=== PATIENT | female | born 1985 | race Caucasian/White ===

== ENCOUNTER 2020-12-04 19:55 | Inpatient (IN) | payer BC ==
[2020-12-04] MEDS: Lactated Ringers 1,000 ML IV SCH ×3 (21:10→23:09)
[2020-12-04] MEDS ORDERED: Acetaminophen 325 MG Tab PO PRN (21:16)
[2020-12-04] MEDS ORDERED: Ondansetron 4 MG/2 ML SDV IVPUSH PRN (21:16)
[2020-12-04] MEDS ORDERED: Calcium Carbonate 500 MG Tab.Chew PO PRN (21:16)
[2020-12-04] MEDS ORDERED: Nalbuphine 10 MG/1 ML Vial IVPUSH PRN (21:16)
[2020-12-04] MEDS ORDERED: Lidocaine 1% 50 ML MDV INJECT ONE (21:16)
[2020-12-04] MEDS ORDERED: Sodium Chloride 0.9% 10 ML Syringe FLUSH PRN (21:16)
[2020-12-04] MEDS ORDERED: Oxytocin/Lactated Ringers 10 UNIT/1,000 ML BAG IV SCH (21:30)
[2020-12-04] MEDS ORDERED: Bupivacaine/fentaNYL/NS 100 ML Bag EPIDUR PRN (22:28)
[2020-12-04] MEDS ORDERED: ePHEDrine 50 MG/ML SDV IVPUSH PRN (22:28)
[2020-12-04] MEDS ORDERED: diphenhydrAMINE 50 MG/ML SDV IVPUSH PRN (22:28)
[2020-12-04] MEDS ORDERED: fentaNYL 100 MCG/2 ML SDV EPIDUR PRN (22:28)
--- NOTE | 2020-12-04 23:03 | PCM.PREANE ---
Preanesthetic Assessment - Procedure Proposed Procedure: epidural - Anesthesia/Transfusion/Family Hx Anesthesia History: Prior Anesthesia Without Reaction Family History of Anesthesia Reaction: No Transfusion History: No Prior Transfusion(s) - Review of Systems General: Fatigue, Malaise Pulmonary: No Symptoms Cardiovascular: No Symptoms Gastrointestinal: Abdominal Pain (labor) Neurological: No Symptoms Other: Reports: None - Physical Assessment Height: 1.68 m Weight: 98.43 kg ASA Class: 2 Mental Status: Alert & Oriented x3 Airway Class: Mallampati = 1 Dentition: Reports: Normal Dentition Thyro-Mental Finger Breadths: 3 Mouth Opening Finger Breadths: 3 ROM/Head Extension: Full Lungs: Clear to Auscultation, Normal Respiratory Effort Cardiovascular: Regular Rate, Regular Rhythm - Lab Values: Laboratory Last Values WBC 10.08 K/mm3 (3.98-10.04) H 12/04/20 21:35 RBC 3.99 M/mm3 (3.98-5.22) 12/04/20 21:35 Hgb 12.5 gm/dl (11.2-15.7) 12/04/20 21:35 Hct 37.1 % (34.1-44.9) 12/04/20 21:35 MCV 93.0 fl (79.4-94.8) 12/04/20 21:35 MCH 31.3 pg (25.6-32.2) 12/04/20 21:35 MCHC 33.7 g/dl (32.2-35.5) 12/04/20 21:35 RDW Std Deviation 43.0 fL (36.4-46.3) 12/04/20 21:35 Plt Count 203 K/mm3 (182-369) 12/04/20 21:35 MPV 10.3 fl (9.4-12.3) 12/04/20 21:35 Neut % (Auto) 75.1 % (34.0-71.1) H 12/04/20 21:35 Lymph % (Auto) 15.6 % (19.3-51.7) L 12/04/20 21:35 [place] % (Auto) 7.8 % (4.7-12.5) 12/04/20 21:35 Eos % (Auto) 1.0 (0.7-5.8) 12/04/20 21:35 Baso % (Auto) 0.1 % (0.1-1.2) 12/04/20 21:35 Neut # (Auto) 7.57 K/mm3 (1.56-6.13) H 12/04/20 21:35 Lymph # (Auto) 1.57 K/mm3 (1.18-3.74) 12/04/20 21:35 [place] # (Auto) 0.79 K/mm3 (0.24-0.36) H 12/04/20 21:35 Eos # (Auto) 0.10 K/mm3 (0.04-0.36) 12/04/20 21:35 Baso # (Auto) 0.01 K/mm3 (0.01-0.08) 12/04/20 21:35 Manual Slide Review 12/04/20 21:35 - Allergies Allergies/Adverse Reactions: Allergies Allergy/AdvReac Type Severity Reaction Status Date / Time No Known Allergies Allergy Verified 12/04/20 22:05 - Anesthesia Plan Pre-Op Medication Ordered: None - Acknowledgements Anesthesia Type Planned: Epidural Pt an Appropriate Candidate for the Planned Anesthesia: Yes Alternatives and Risks of Anesthesia Discussed w Pt/Guardian: Yes Pt/Guardian Understands and Agrees with Anesthesia Plan: Yes PreAnesthesia Questionnaire HEENT History: Reports: None Cardiovascular History: Reports: None Respiratory History: Reports: Asthma, Other (See Below) Other Respiratory History: when exposed to cats and smoke and too much exercise needs inhaler-has not needed it during Gastrointestinal History: Reports: None, GERD Genitourinary History: Reports: None RIBBER History: Reports: Spontaneous Musculoskeletal History: Reports: None Neurological History: Reports: None Psychiatric History: Reports: None Endocrine/Metabolic History: Reports: None Hematologic History: Reports: None Immunologic History: Reports: None Oncologic (Cancer) History: Reports: None Dermatologic History: Reports: None - Infectious Disease History Infectious Disease History: Reports: None - Past Surgical History Head Surgeries/Procedures: Reports: None HEENT Surgical History: Reports: Adenoidectomy, Tonsillectomy Other HEENT Surgeries/Procedures: age 12 Cardiovascular Surgical History: Reports: None Respiratory Surgical History: Reports: None GI Surgical History: Reports: None Female Surgical History: Reports: None Endocrine Surgical History: Reports: None Neurological Surgical History: Reports: None Musculoskeletal Surgical History: Reports: None Oncologic Surgical History: Reports: None Dermatological Surgical History: Reports: None - CURRENT (IN HOUSE) MEDS Current Meds: Current Medications Acetaminophen (Acetaminophen 325 Mg Tab) 650 mg PO Q4H PRN PRN Reason: Pain (Mild 1-3) and fever Calcium Carbonate/Glycine (Calcium Carbonate 500 Mg Tab.Chew) 1,000 mg PO Q2H PRN PRN Reason: Indigestion Diphenhydramine HCl (Diphenhydramine 50 Mg/Ml Sdv) 25 mg IVPUSH Q6H PRN PRN Reason: pruritis Ephedrine Sulfate (Ephedrine 50 Mg/Ml Sdv) 5 mg IVPUSH ASDIRECTED PRN PRN Reason: Hypotension Fentanyl (Fentanyl 100 Mcg/2 Ml Sdv) 100 mcg EPIDUR Q3H PRN PRN Reason: Pain Last Admin: 12/04/20 22:38 Dose: 100 mcg Documented by: Fentanyl/Bupivacaine HCl (Bupivacaine/Fentanyl/Ns 100 Ml Bag) 100 ml EPIDUR ASDIRECTED PRN PRN Reason: Pain Last Admin: 12/04/20 22:38 Dose: 100 ml Documented by: Lactated Ringer's (Ringers, Lactated) 1,000 mls @ 100 mls/hr IV ASDIRECTED TORRIE Last Admin: 12/04/20 22:15 Dose: 999 mls/hr Documented by: Oxytocin/Lactated Ringer's (Pitocin In Lr 10 Units/1,000 Ml) 10 unit in 1,000 mls @ 500 mls/hr IV .CONTINUOUS TORRIE Nalbuphine HCl (Nalbuphine 10 Mg/1 Ml Vial) 10 mg IVPUSH Q2H PRN PRN Reason: Pain Ondansetron HCl (Ondansetron 4 Mg/2 Ml Sdv) 4 mg IVPUSH Q4H PRN PRN Reason: Nausea/Vomiting Sodium Chloride (Sodium Chloride 0.9% 10 Ml Syringe) 10 ml FLUSH ASDIRECTED PRN PRN Reason: Keep Vein Open Discontinued Medications Lidocaine HCl (Lidocaine 1% 50 Ml Mdv) 50 ml INJECT ONETIME ONE Stop: 12/04/20 21:17
[2020-12-05] MEDS: Lactated Ringers 1,000 ML IV SCH (00:10)
--- NOTE | 2020-12-05 02:07 | PCM.LDHP ---
L&D History of Present Illness - General Date of Service: 12/05/20 Admit Problem/Dx: Patient Status Order with Admit Dx/Problem 12/04/20 20:06 Patient Status [ADT] Routine 12/04/20 21:16 Patient Status [ADT] Routine 12/04/20 21:31 Admission Status [Patient Status] [ADT] Routine Admission Diagnosis/Problem Admission Diagnosis/Problem - History of Present Illness Introduction:: 35 year old at 40w1 here in labor. PNC with Dr. Nova without com plications. 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 Musculoskeletal History: Reports: None Neurological History: Reports: None Psychiatric History: Reports: None Endocrine/Metabolic History: Reports: None Hematologic History: Reports: None Immunologic History: Reports: None Oncologic (Cancer) History: Reports: None Dermatologic History: Reports: None - Infectious Disease History Infectious Disease History: Reports: None - Past Surgical History Head Surgeries/Procedures: Reports: None HEENT Surgical History: Reports: Adenoidectomy, Tonsillectomy Other HEENT Surgeries/Procedures: age 12 Cardiovascular Surgical History: Reports: None Respiratory Surgical History: Reports: None GI Surgical History: Reports: None Female Surgical History: Reports: None Endocrine Surgical History: Reports: None Neurological Surgical History: Reports: None Musculoskeletal Surgical History: Reports: None Oncologic Surgical History: Reports: None Dermatological Surgical History: Reports: None Social & Family History - Family History Family Medical History: No Pertinent Family History - Tobacco Use Tobacco Use Status *Q: Never Tobacco User Second Hand Smoke Exposure: No - Caffeine Use Caffeine Use: Reports: Coffee - Recreational Drug Use Recreational Drug Use: No H&P Review of Systems - Review of Systems: Review Of Systems: See Below General: Reports: No Symptoms HEENT: Reports: No Symptoms Pulmonary: Reports: No Symptoms Cardiovascular: Reports: No Symptoms Gastrointestinal: Reports: No Symptoms Genitourinary: Reports: No Symptoms Musculoskeletal: Reports: No Symptoms Skin: Reports: No Symptoms Psychiatric: Reports: No Symptoms Neurological: Reports: No Symptoms Hematologic/Lymphatic: Reports: No Symptoms Immunologic: Reports: No Symptoms L&D Exam - Exam Exam: See Below - Vital Signs Weight: 98.43 kg - OB Specific Contraction Intensity: Moderate to Strong Movement: Active Heart Tones: Present Heart Rate (FHR) Variability: Moderate (6-25 bmp) Presentation: Vertex - Terrazas Score Terrazas Score Cervix Position: Anterior [place]raz[place] Score Consistency: Soft [place] Score Effacement: 51-70% - Exam General: Alert, Oriented HEENT: PERRLA, Conjunctiva Clear, EACs Clear, EOMI, Hearing Intact, Mucosa Moist & [place], Nares Patent, Normal Nasal Septum, Posterior Pharynx Clear, TMs Clear Neck: Supple, Trachea Midline Lungs: Clear to Auscultation, Normal Respiratory Effort Cardiovascular: Regular Rate, Regular Rhythm GI/Abdominal Exam: Normal Bowel Sounds, Soft, Non-Tender, No Organomegaly, No Distention, No Abnormal Bruit, No Mass Genitourinary: Normal external exam, Normal bimanual exam Back Exam: Normal Inspection, Full Range of Motion Extremities: Normal Inspection, Normal Range of Motion, Non-Tender, No Pedal Edema, Normal Capillary Refill Skin: Warm, Dry, Intact Neurological: Cranial Nerves Intact, Reflexes Equal Bilateral Psychiatric: Alert, Normal Affect, Normal Mood - Patient Data Lab Results Last 24 hrs: Laboratory Results - last 24 hr 12/04/20 12/04/20 Range/Units 21:35 22:10 WBC 10.08 H (3.98-10.04) K/mm3 RBC 3.99 (3.98-5.22) M/mm3 Hgb 12.5 (11.2-15.7) gm/dl Hct 37.1 (34.1-44.9) % MCV 93.0 (79.4-94.8) fl MCH 31.3 (25.6-32.2) pg MCHC 33.7 (32.2-35.5) g/dl RDW Std Deviation 43.0 (36.4-46.3) fL Plt Count 203 (182-369) K/mm3 MPV 10.3 (9.4-12.3) fl Neut % (Auto) 75.1 H (34.0-71.1) % Lymph % (Auto) 15.6 L (19.3-51.7) % [place] % (Auto) 7.8 (4.7-12.5) % Eos % (Auto) 1.0 (0.7-5.8) Baso % (Auto) 0.1 (0.1-1.2) % Neut # (Auto) 7.57 H (1.56-6.13) K/mm3 Lymph # (Auto) 1.57 (1.18-3.74) K/mm3 [place] # (Auto) 0.79 H (0.24-0.36) K/mm3 Eos # (Auto) 0.10 (0.04-0.36) K/mm3 Baso # (Auto) 0.01 (0.01-0.08) K/mm3 Manual Slide Review SARS-CoV-2 RNA (KRISTEN) Negative (NEGATIVE) Result Diagrams: 12/04/20 21:35 Problem List Initiated/Reviewed/Updated: Yes Orders Last 24hrs: Active Orders 24 hr Category Date Time Status Admission Status [Patient Status] [ADT] Routine ADT 12/04/20 21:31 Active Activity as Tolerated [RC] PFP Care 12/04/20 21:16 Active Communication Order [RC] ASDIRECTED Care 12/04/20 21:16 Active Communication Order [RC] ASDIRECTED Care 12/04/20 22:29 Active Cooling Warming Measures [RC] ASDIRECTED Care 12/04/20 22:29 Active Heart Tones [RC] ASDIRECTED Care 12/04/20 21:17 Active Non Stress Test [RC] PER UNIT ROUTINE Care 12/04/20 20:06 Active Non Stress Test [RC] PER UNIT ROUTINE Care 12/04/20 21:16 Active Notify Provider [RC] ASDIRECTED Care 12/04/20 22:28 Active Notify Provider [RC] ASDIRECTED Care 12/04/20 22:29 Active Notify Provider [RC] PFP Care 12/04/20 21:16 Active Notify Provider [RC] PRN Care 12/04/20 21:16 Active Oxygen Therapy [RC] ASDIRECTED Care 12/04/20 22:29 Active Peripheral IV Care [RC] . DIRECTED Care 12/04/20 21:17 Active Pulse Oximetry [RC] ASDIRECTED Care 12/04/20 22:29 Active Vital Signs [RC] PER UNIT ROUTINE Care 12/04/20 20:06 Active Vital Signs [RC] Q1H Care 12/04/20 22:29 Active HEP C VIRUS AB [REF] Routine Lab 12/04/20 21:35 Received RAPID PLASMA REAGIN,RPR [CHEM] Routine Lab 12/04/20 21:35 Received Acetaminophen [TylenoL] Med 12/04/20 21:16 Active 650 mg PO Q4H PRN Bupivacaine/fentaNYL/NS [fentaNYL/Bupivacaine/NS 2 MCG- Med 12/04/20 22:28 Active 0.125% 100 ML] 100 ml EPIDUR ASDIRECTED PRN Calcium Carbonate [Tums] Med 12/04/20 21:16 Active 1,000 mg PO Q2H PRN Lactated Ringers [Ringers, Lactated] 1,000 ml Med 12/04/20 21:30 Active IV ASDIRECTED Nalbuphine [Nubain] Med 12/04/20 21:16 Active 10 mg IVPUSH Q2H PRN Ondansetron [Zofran] Med 12/04/20 21:16 Active 4 mg IVPUSH Q4H PRN Oxytocin/Lactated Ringers [Pitocin in LR 10 Units/1,000 Med 12/04/20 21:30 Active ML] 10 unit in 1,000 ml IV .CONTINUOUS Sodium Chloride 0.9% [Saline Flush] Med 12/04/20 21:16 Active 10 ml FLUSH ASDIRECTED PRN diphenhydrAMINE [Benadryl] Med 12/04/20 22:28 Active 25 mg IVPUSH Q6H PRN ePHEDrine [ePHEDrine sulfate] Med 12/04/20 22:28 Active 5 mg IVPUSH ASDIRECTED PRN fentaNYL [Sublimaze] Med 12/04/20 22:28 Active 100 mcg EPIDUR Q3H PRN Electronic Heart Tones Ext w TOCO [WOMSER] Oth 12/04/20 21:16 Ordered Routine Electronic Heart Tones Internal [WOMSER] Per Unit Oth 12/04/20 21:16 Ordered Routine Peripheral IV Insertion Adult [OM.PC] Routine Oth 12/04/20 21:16 Ordered Resuscitation Status Routine Resus Stat 12/04/20 20:06 Ordered Medication Orders Acetaminophen (Acetaminophen 325 Mg Tab) 650 mg PO Q4H PRN PRN Reason: Pain (Mild 1-3) and fever Calcium Carbonate/Glycine (Calcium Carbonate 500 Mg Tab.Chew) 1,000 mg PO Q2H PRN PRN Reason: Indigestion Diphenhydramine HCl (Diphenhydramine 50 Mg/Ml Sdv) 25 mg IVPUSH Q6H PRN PRN Reason: pruritis Ephedrine Sulfate (Ephedrine 50 Mg/Ml Sdv) 5 mg IVPUSH ASDIRECTED PRN PRN Reason: Hypotension Fentanyl (Fentanyl 100 Mcg/2 Ml Sdv) 100 mcg EPIDUR Q3H PRN PRN Reason: Pain Last Admin: 12/04/20 22:38 Dose: 100 mcg Documented by: PAOLA Fentanyl/Bupivacaine HCl (Bupivacaine/Fentanyl/Ns 100 Ml Bag) 100 ml EPIDUR ASDIRECTED PRN PRN Reason: Pain Last Admin: 12/04/20 22:38 Dose: 100 ml Documented by: PAOLA Lactated Ringer's (Ringers, Lactated) 1,000 mls @ 100 mls/hr IV ASDIRECTED TORRIE Last Admin: 12/04/20 23:09 Dose: 999 mls/hr Documented by: Infusion: 12/04/20 23:09 Dose: 999 mls/hr Documented by: Admin: 12/04/20 22:15 Dose: 999 mls/hr Documented by: Infusion: 12/04/20 22:11 Dose: 999 mls/hr Documented by: Admin: 12/04/20 21:10 Dose: 999 mls/hr Documented by: ALMITA Oxytocin/Lactated Ringer's (Pitocin In Lr 10 Units/1,000 Ml) 10 unit in 1,000 mls @ 500 mls/hr IV .CONTINUOUS TORRIE Nalbuphine HCl (Nalbuphine 10 Mg/1 Ml Vial) 10 mg IVPUSH Q2H PRN PRN Reason: Pain Ondansetron HCl (Ondansetron 4 Mg/2 Ml Sdv) 4 mg IVPUSH Q4H PRN PRN Reason: Nausea/Vomiting Sodium Chloride (Sodium Chloride 0.9% 10 Ml Syringe) 10 ml FLUSH ASDIRECTED PRN PRN Reason: Keep Vein Open Assessment/Plan Comment:: Term labor. Anticipate
--- NOTE | 2020-12-05 03:45 | PCM.SN.2 ---
- Free Text/Narrative Note: Stage I - Patient presented in active labor at 40w1. Painful contractions. Progressed to complete with overall reassuring heart tones with some episodes of diminished variability that resolved promptly either spontaneously or with scalp stimulation. SROM of minimal fluid at 8 cm and soon there after complete. Stage II - of viable female, weight 3280g, 2/6/9 apgars at 0309. Head delivered OP with nuchal hand in controlled manner. Body followed atraumatically. Meconium at delivery. Limp baby briefly to maternal abdomen, cord clamped and cut and taken immediately to warmer to awaiting nurses. Cord blood collected. Stage III - of intact placenta. 3vc. Left labial and 2nd degree midline lacerations repaired with 3-0 vicryl. EBL 250. Straight cath of clear urine.
[2020-12-05] MEDS ORDERED: Bupivacaine 0.25% 10 ML SDV ONE (04:00)
[2020-12-05] MEDS ORDERED: Witch Hazel Medicated Pads 40/Jar TOP PRN (04:49)
[2020-12-05] MEDS ORDERED: Docusate Sodium 100 MG Cap PO PRN (04:49)
[2020-12-05] MEDS ORDERED: Benzocaine/Menthol 20%-0.5% Spray 56 GM Canister TOP PRN (04:49)
[2020-12-05] MEDS: Ibuprofen 600 MG Tab PO PRN ×2 (05:06→16:46)
--- NOTE | 2020-12-05 07:13 | PCM48HPAN ---
Post Anesthesia Note - EVALUATION WITHIN 48HRS OF ANESTHETIC Vital Signs in Normal Range: Yes Patient Participated in Evaluation: Yes Respiratory Function Stable: Yes Airway Patent: Yes Cardiovascular Function Stable: Yes Hydration Status Stable: Yes Pain Control Satisfactory: Yes Nausea and Vomiting Control Satisfactory: Yes Mental Status Recovered: Yes - COMMENTS/OBSERVATIONS Free Text/Narrative:: Patient sitting up in bed nursing baby during visit. Patient denying nausea/v omiting. Patient having mild back discomfort at this time at epidural placement site. Reviewed signs and symptoms of infection, mild back discomfort, and post- dural puncture headache (headache, ringing in ears, dizziness). Also discussed post- depression and signs/symptoms. Discussed with patient if any of those symptoms develop or if back discomfort increases to contact OB/Anesthesia and questions/concerns can be addressed and treated if necessary. Patient verbalized understanding. No questions or concerns at this time.
[2020-12-06] MEDS: Ibuprofen 600 MG Tab PO PRN (07:37)
--- NOTE | 2020-12-06 08:53 | PCM.DCSUM1 ---
Discharge Summary - Hospital Course Brief History: 35 year old s/p . Doing well. No issues. Diagnosis: Stroke: No - Discharge Data Discharge Date: 12/06/20 Discharge Disposition: Home, Self-Care 01 Condition: Good - Referral to Home Health Primary Care Physician: Tessa Nova MD - Patient Instructions Diet: Usual Diet as Tolerated Activity: No Strenuous Activities Driving: May Drive Today Showering/Bathing: May Shower Wound/Incision Care: Keep Operative Site/Wound Site Clean and Dry, Change Dressing Daily, Do NOT Change Dressing Notify Provider of: Fever, Increased Pain, Swelling and Redness, Drainage, Nausea and/or Vomiting - Discharge Plan *PRESCRIPTION DRUG MONITORING PROGRAM REVIEWED*: No *COPY OF PRESCRIPTION DRUG MONITORING REPORT IN PATIENT TASHA: No Referrals: Tessa Nova MD [Primary Care Provider] - (2 weeks) - Discharge Summary/Plan Comment DC Time >30 min.: No - General Info Date of Service: 12/06/20 Functional Status: Reports: Pain Controlled - Review of Systems General: Reports: No Symptoms HEENT: Reports: No Symptoms Pulmonary: Reports: No Symptoms Cardiovascular: Reports: No Symptoms Gastrointestinal: Reports: No Symptoms Genitourinary: Reports: No Symptoms Musculoskeletal: Reports: No Symptoms Skin: Reports: No Symptoms Neurological: Reports: No Symptoms Psychiatric: Reports: No Symptoms - Patient Data Vitals - Most Recent: Last Vital Signs Temp 36.7 C 12/06/20 04:47 Pulse 72 12/06/20 04:47 Resp 16 12/06/20 04:47 BP 122/70 12/06/20 04:47 Pulse Ox 92 L 12/06/20 04:47 Weight - Most Recent: 98.43 kg Lab Results - Last 24 hrs: Laboratory Results - last 24 hr 12/04/20 Range/Units 21:35 RPR Non-reactive (NONREACTIVE) Med Orders - Current: Current Medications Acetaminophen (Acetaminophen 325 Mg Tab) 650 mg PO Q4H PRN PRN Reason: Pain (Mild 1-3) and fever Benzocaine/Menthol (Benzocaine/Menthol 20%-0.5% [place] 56 Gm Canister) 0 gm TOP ASDIRECTED PRN PRN Reason: Perineal Comfort Measure Last Admin: 12/05/20 05:05 Dose: 1 canister Documented by: Docusate Sodium (Docusate Sodium 100 Mg Cap) 100 mg PO BID PRN PRN Reason: Constipation Ibuprofen (Ibuprofen 600 Mg Tab) 600 mg PO Q6H PRN PRN Reason: Mild pain or fever Last Admin: 12/06/20 07:37 Dose: 600 mg Documented by: Peter Montanez (Peter Montanez Medicated Pads 40/Jar) 1 pad TOP ASDIRECTED PRN PRN Reason: Perineal Comfort Measure Last Admin: 12/05/20 05:06 Dose: 1 case Documented by: Discontinued Medications Bupivacaine HCl (Bupivacaine 0.25% 10 Ml Sdv) 10 ml .ROUTE .STK-MED ONE Stop: 12/05/20 04:01 Calcium Carbonate/Glycine (Calcium Carbonate 500 Mg Tab.Chew) 1,000 mg PO Q2H PRN PRN Reason: Indigestion Diphenhydramine HCl (Diphenhydramine 50 Mg/Ml Sdv) 25 mg IVPUSH Q6H PRN PRN Reason: pruritis Ephedrine Sulfate (Ephedrine 50 Mg/Ml Sdv) 5 mg IVPUSH ASDIRECTED PRN PRN Reason: Hypotension Fentanyl (Fentanyl 100 Mcg/2 Ml Sdv) 100 mcg EPIDUR Q3H PRN PRN Reason: Pain Last Admin: 12/04/20 22:38 Dose: 100 mcg Documented by: Fentanyl/Bupivacaine HCl (Bupivacaine/Fentanyl/Ns 100 Ml Bag) 100 ml EPIDUR ASDIRECTED PRN PRN Reason: Pain Last Admin: 12/04/20 22:38 Dose: 100 ml Documented by: Lactated Ringer's (Ringers, Lactated) 1,000 mls @ 100 mls/hr IV ASDIRECTED TORRIE Last Infusion: 12/05/20 02:15 Dose: 500 mls/hr Documented by: Oxytocin/Lactated Ringer's (Pitocin In Lr 10 Units/1,000 Ml) 10 unit in 1,000 mls @ 500 mls/hr IV .CONTINUOUS TORRIE Last Admin: 12/05/20 03:10 Dose: 500 mls/hr Documented by: Lidocaine HCl (Lidocaine 1% 50 Ml Mdv) 50 ml INJECT ONETIME ONE Stop: 12/04/20 21:17 Nalbuphine HCl (Nalbuphine 10 Mg/1 Ml Vial) 10 mg IVPUSH Q2H PRN PRN Reason: Pain Ondansetron HCl (Ondansetron 4 Mg/2 Ml Sdv) 4 mg IVPUSH Q4H PRN PRN Reason: Nausea/Vomiting Sodium Chloride (Sodium Chloride 0.9% 10 Ml Syringe) 10 ml FLUSH ASDIRECTED PRN PRN Reason: Keep Vein Open - Exam General: Reports: Alert, Oriented HEENT: Reports: Pupils Equal, Pupils Reactive, EOMI, Mucous Membr. Moist/[place] Neck: Reports: Supple Lungs: Reports: Clear to Auscultation, Normal Respiratory Effort Cardiovascular: Reports: Regular Rate, Regular Rhythm GI/Abdominal Exam: Normal Bowel Sounds, Soft, Non-Tender, No Organomegaly, No Distention, No Abnormal Bruit (Female) Exam: Normal Speculum Exam Rectal (Female) Exam: Normal Exam, Normal Rectal Tone Back Exam: Reports: Normal Inspection, Full Range of Motion Extremities: Normal Inspection, Normal Range of Motion, Non-Tender, No Pedal Edema, Normal Capillary Refill Skin: Reports: Warm, Dry, Intact Wound/Incisions: Reports: Healing Well Neurological: Reports: No New Focal Deficit Psy/Mental Status: Reports: Alert, Normal Affect, Normal Mood
== END 2020-12-06 09:18 | disposition home or self-care (01) | DRG 560 ==
LOC: JD.OBCHECK 19:55 → JD.OB 19:56 → JD.OBCHECK 21:15 → JD.OB 21:16 → OBSVTOIN 12-05 03:09 → JD.OB 12-05 03:10
PROVIDERS: ADMIT Obstetrics & Gynecology; ATTEND Obstetrics & Gynecology
PROC: 10E0XZZ Delivery of Products of Conception, External Approach (ICD-10-PCS; principal; 2020-12-05)
PROC: 0KQM0ZZ Repair Perineum Muscle, Open Approach (ICD-10-PCS; 2020-12-05)
PROC: 3E0R3BZ Introduction of Anesthetic Agent into Spinal Canal, Percutaneous Approach (ICD-10-PCS; 2020-12-05)
DX: O48.0 Post-term pregnancy (principal); Z37.0 Single live birth; O77.0 Labor and delivery complicated by meconium in amniotic fluid; O69.81X0 Labor and delivery complicated by cord around neck, without compression, not applicable or unspecified; O70.1 Second degree perineal laceration during delivery; Z3A.40 40 weeks gestation of pregnancy; Z90.89 Acquired absence of other organs; Z90.49 Acquired absence of other specified parts of digestive tract; Z20.822 Contact with and (suspected) exposure to COVID-19
CPT/HCPCS: 01967; 36415; 51701; 51702; 59025; 59409; 85025; 86592; 86803; A9270-GY; J2590; J3010; J3490; J7120; U0002